=== PATIENT | female | born 1940 | race Caucasian/White ===

== ENCOUNTER 2019-02-05 23:59 | Emergency (ER) | payer MEDICARE ==
[~2019-02-05] VITALS: Ht 162.6 cm; Wt 54.5 kg
[~2019-02-05 23:59] MED LIST: ASPI-611 PO; ATOR40TA PO; FLUTICASONE; LISI2.5T2 PO; PARO-62 PO; TRAM50TA2 PO
[2019-02-06 00:02] VITALS: BP 130/64
== END 2019-02-06 02:12 | disposition home or self-care (01) ==
LOC: ER 02-06
DX: S61.512A Laceration without foreign body of left wrist, initial encounter (principal); Z90.710 Acquired absence of both cervix and uterus; Z90.49 Acquired absence of other specified parts of digestive tract; Z79.82 Long term (current) use of aspirin; Z88.6 Allergy status to analgesic agent; W55.03XA Scratched by cat, initial encounter; Y93.89 Activity, other specified; Y92.89 Other specified places as the place of occurrence of the external cause; Y99.8 Other external cause status
CPT/HCPCS: 99283